=== PATIENT | female | born 1955 | race Caucasian/White ===

== ENCOUNTER 2017-03-24 17:34 | Inpatient (IN) | payer OTHER ==
--- NOTE | ~2017-03-24 | DS ---
Discharge Summary [facility] [address] [place]. [address] NAME: AKHIL ANTHONY : 53 STATUS : DIS IN PAT#: [id number] AGE: 61 ADM/REG DATE : 03/24/17 MR#: [id number] REPORT SERV DATE: 04/09/17 DICTATED BY: HEATHER MYERS JR. DATE: 04/08/17 REPORT STATUS : Draft TRANSCRIBED BY: AZIZA DATE: 04/08/17 Data Collection from hospitalization DISCHARGE DIAGNOSES: 1. Right pneumothorax. 2. Chronic obstructive pulmonary disease. 3. Degenerative joint disease. 4. Multiple pulmonary nodules. 5. Osteoarthritis. 6. Osteoporosis. 7. Tobacco abuse. CONSULTATIONS: None. PROCEDURES PERFORMED: None. MEDICATIONS: Artificial Tears one drop daily as needed, Essie 180 mg daily as needed, and ibuprofen 600 mg daily as needed. CONDITION AT DISCHARGE: Stable. DISPOSITION: The patient was discharged home on a regular diet with activities as instructed. She would follow up with me on 03/30/2017. HOSPITAL COURSE: This is a 61-year-old female who has been undergoing CT surveillance for right upper lobe nodules, which currently measured 8.[address] scan of the chest, it measured 7.2 x 6.[address] surveillance in August of 2016. She also has a right middle lobe nodule that measures 4 mm. She has a past smoking history of one pack per day. She quit smoking in August 2016. She has a significant central lobar emphysematous changes bilaterally. She does not take any long-term medications. She underwent CT-guided needle biopsy on the day of this admission and developed a pneumothorax postbiopsy. She required a chest tube to be placed. She was admitted to the hospital at this time for further evaluation and treatment. On the day following admission, she was afebrile. Her vital signs were stable. Chest x-ray showed right Pigtail chest tube in place. Right pneumothorax measured 18 mm at the apex. On 03/26/2017, chest x-ray showed improving right upper lobe consolidation/airspace disease. Right chest tube was still in place. There was no significant pneumothorax. Discharge planning was performed. On 03/27/2017, she continued to do well. She had some right-sided shoulder pain. She was alert and cooperative. Chest x-ray showed no pneumothorax. Chest tube was removed. Discharge instructions were given. Due to her improved and stable condition, she was discharged home with the above-stated instructions. Information collected by: Chasity Womack I submit the above information as my discharge summary. Discharge Summary [facility] [address]. [place] [id number] NAME: AKHIL ANTHONY : 53 STATUS : DIS IN PAT#: [id number] AGE: 61 ADM/REG DATE : 03/24/17 MR#: [id number] REPORT SERV DATE: 04/09/17 DICTATED BY: HEATHER MYERS JR. DATE: 04/08/17 REPORT STATUS : Draft TRANSCRIBED BY: AZIZA DATE: 04/08/17 TG/AZIZA Heather Myers Jr., M.D. / [id number] CC: Renee Nash Jr., JAMES E
[2017-03-24] MEDS ORDERED: IBU-200200 MG PO (18:27)
[2017-03-24] MEDS ORDERED: REFRESH OPH (18:28)
[2017-03-24] MEDS ORDERED: ALLEGRA180 PO (18:28)
[2017-04-21] MEDS ORDERED: PCET PO (09:50)
== END 2017-03-27 18:59 | disposition home or self-care (01) | DRG 201 ==
LOC: 5NO 17:34
DX: J95.811 Postprocedural pneumothorax (principal); J44.9 Chronic obstructive pulmonary disease, unspecified; R91.1 Solitary pulmonary nodule; Z87.891 Personal history of nicotine dependence; M19.90 Unspecified osteoarthritis, unspecified site
CPT/HCPCS: 71010; 71020; A9270-GY